=== PATIENT | male | born 1980 | race Caucasian/White ===

== ENCOUNTER 2019-06-20 15:15 | Emergency (ER) | payer OTHER, SELFPAY ==
[2019-06-20 15:19] VITALS: BP 152/108; PULSE 86; RESP 18; TEMP 36.8; O2SAT 100
--- NOTE | 2019-06-20 15:40 | ED.GENADULT ---
HPI - General Adult General Chief complaint: Wound/Laceration Stated complaint: Tooth pain Time Seen by Provider: 06/20/19 15:16 Source: patient Mode of arrival: ambulatory Limitations: no limitations History of Present Illness HPI narrative: Patient a 38-year-old male who presents to emergency department for right upper dental pain with history of gross dental decay noting moderate aching pain for the last 2 to 3 days worse with eating patient denies any fever chills nausea vomiting or URI symptoms has not taken anything for his symptoms does not have a dentist to follow with Related Data Allergies Allergy/AdvReac Type Severity Reaction Status Date / Time No Known Allergies Allergy Verified 06/20/19 15:48 Review of Systems Review of Systems: All systems reviewed & are unremarkable except as noted in HPI and below PMFSH Social History Social History Smoking status: Current every day smoker Exam Narrative: Exam Narrative: GENERAL: Well-appearing, well-nourished, and in no acute distress. HEAD: Normocephalic, atraumatic. EYES: PERRLA and EOMI. ENT: Nares clear, no rhinorrhea or epistaxis. Mucous membranes moist. Patient with gross dental decay no erythema swelling EXTREMITIES: Normal range of motion. No edema. SKIN: Warm, dry, no rash. NEURO: No focal deficits. Alert and oriented x3. PSYCH: Normal mood and affect. Course Course Emergency Course: Patient in the room aware of case findings treatment plan and diagnosis agreeing to follow-up with primary care and dentistry as instructed provided with reasons to return Vital Signs Vital signs: Vital Signs Temperature 98.3 F 06/20/19 15:19 Pulse Rate 86 06/20/19 15:19 Respiratory Rate 18 06/20/19 15:19 Blood Pressure 152/108 H 06/20/19 15:19 Pulse Oximetry 100 06/20/19 15:19 Temperature 98.3 F 06/20/19 15:19 Pulse Rate 86 06/20/19 15:19 Respiratory Rate 18 06/20/19 15:19 Blood Pressure 152/108 H 06/20/19 15:19 Pulse Oximetry 100 06/20/19 15:19 Medical Decision Making MDM Narrative Medical decision making narrative: Paitents pain and complaint coupled with physical findings are consistant with dentalgia. There are no focal signs of space occupying lesions that are compromising to the ariway. The floor of the mouth is soft with no signs of Ludwigs Angina. Patient is without trismus or drooling and able to swallow secreations. Patient is felt appropriate for discharge home with dental follow up. Vital Signs Vital Signs: Vital Signs Temperature 98.3 F 06/20/19 15:19 Pulse Rate 86 06/20/19 15:19 Respiratory Rate 18 06/20/19 15:19 Blood Pressure 152/108 H 06/20/19 15:19 Pulse Oximetry 100 06/20/19 15:19 Temperature 98.3 F 06/20/19 15:19 Pulse Rate 86 06/20/19 15:19 Respiratory Rate 18 06/20/19 15:19 Blood Pressure 152/108 H 06/20/19 15:19 Pulse Oximetry 100 06/20/19 15:19 Discharge Plan Discharge Clinical Impression: Dentalgia Patient Disposition: Home, Self-Care Condition: Stable Instructions: Antibiotic Form, Toothache (ED) Additional Instructions: Follow up with your primary care doctor and dentistry in 5-7 days for re-evaluation. Go to ER for worsening pain, vision changes, nausea/vomiting, fever/chills, weakness, chest pain, shortness of breath, numbness/tingling, slurred speech, difficulty walking, change in mental status unable to swallow or open the mouth etc. or any other concerns. Stay well-hydrated Take any prescribed medications as directed. Prescriptions: New amoxicillin 500 mg capsule 500 mg PO Q12H 10 Days Qty: 20 RF: 0 chlorhexidine gluconate [Peridex] 0.12 % mouthwash 15 ml MUCOUS MEM BID Qty: 1500 RF: 0 ibuprofen [IBU] 600 mg tablet 600 mg PO Q6H PRN (Reason: fever or pain) Qty: 7 RF: 0 Follow-up/Referrals: Dental Referral Line [Outside] [facility] [Outside] [facility]
[2019-06-20] MEDS: KETOROLAC (*BKC) 60 MG/2 ML VIAL IM (15:46)
[2019-06-20 15:59] VITALS: BP 148/78; PULSE 80; RESP 18; O2SAT 99
== END 2019-06-20 16:01 | disposition home or self-care (01) ==
PROVIDERS: Emergency Provider Emergency Medicine
DX: K08.89 Other specified disorders of teeth and supporting structures (principal); F17.200 Nicotine dependence, unspecified, uncomplicated
CPT/HCPCS: 96372; 99283; J1885

== ENCOUNTER 2020-01-02 17:24 | Emergency (ER) | payer OTHER, SELFPAY ==
--- NOTE | ~2020-01-02 | CT_ITS ---
EXAMINATION: CT abdomen pelvis w con DATE: 01/02/2020 19:58 INDICATION: Abdominal pain TECHNIQUE: Computed tomography (CT) of the abdomen and pelvis was performed with 100 mL Omnipaque-350 intravenous contrast. Automated exposure control and iterative reconstruction technique were employe d. The dose-length product was 651.80 mGy-cm. COMPARISON: None FINDINGS: A few calcified nodules in the left lower lobe, calcified left hilar and paraesophageal lymph nodes a nd a few scattered hepatic and splenic calcification consistent with old granulomatous disease. Heart size is normal. No pericardial or pleural effusion. Focal hepatic steatosis at the ligamentum teres. Gallbladder, pancreas and bilateral kidneys are normal. 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 Additional 1.5 cm cyst at the lower pole of th e left kidney. There is mild colonic diverticulosis with a sigmoid predominance. There is no adjacent inflammatory change to suggest diverticulitis. Small bowel and appendix are normal. Bladder is chinedu l. No free intraperitoneal gas or fluid. No pathologically enlarged abdominal or pelvic lymphadenopat hy. 6 mm retrolisthesis L5 on S1 with severe disc height loss at this level. IMPRESSION: 1. No acute intra-abdominal/pelvic process. Reviewed, dictated and finalized at [facility]. [facility]
[2020-01-02 17:52] VITALS: BP 121/83; PULSE 84; RESP 16; TEMP 36.3; O2SAT 97
[2020-01-02 18:05] LABS: Basophils Absolute Auto 0.1 K/mm3 (0.0-0.1); Basophils Percent Auto 0.5 % (0.2-1.2); Eosinophils Absolute Auto 0.6 K/mm3 (0-0.3); Eosinophils Percent Auto 6.1 % (0-4.4); Hematocrit 47.5 % (42.0-52.0); Hemoglobin 16.3 g/dL (14.0-18.0); Immature Granulocyte Absolute 0.02 K/mm3 (0.00-0.031); Immature Granulocyte Percent A 0.2 % (0-0.5); Mean Corpuscular HGB Conc 34.3 g/dl (32-36); Mean Corpuscular Hemoglobin 30.3 pg (26-34); Mean Corpuscular Volume 88.3 fl (80-100); Monocytes Absolute Auto 0.7 K/mm3 (0.1-0.6); Monocytes Percent Auto 7.1 % (2.6-8.5); Neutrophils Percent Auto 63.1 % (45.5-73.1); Platelet Count Result 337 k/mm3 (150-375); Red Blood Count 5.38 M/mm3 (4.6-6.20); Red Cell Distribution Width 13.2 % (11.5-14.5); White Blood Count 9.6 K/mm3 (4.5-10.0)
[2020-01-02 18:17] LABS: Alanine Aminotransferase 26 U/L (4-50); Albumin Level 4.2 g/dL (3.5-5.1); Alkaline Phosphatase 87 U/L (38-126); Anion Gap 7 mmol/L (8-16); Aspartate Amino Transferase 30 U/L (17-59); Bilirubin,Total 0.3 mg/dL (0.2-1.3); Blood Urea Nitrogen 12 mg/dL (9-20); Calcium 9.1 mg/dL (8.4-10.2); Carbon Dioxide 27 mmol/L (22-30); Chloride 103 mmol/L (98-107); Estimated CRCL calculation 158 ml/min; Estimated Glomerular Filt Rate > 60; Glucose 114 mg/dL (75-110); Lipase 363 U/L (23-300); Sodium 137 mmol/L (137-145)
[2020-01-02 18:22] LABS: Add Urine Microscopic? NO; Appearance Urine Clear (Clear); Bilirubin Urine Negative (Negative); Blood Urine Negative (Negative); Color Urine Yellow (Yellow); Glucose Urine UA Negative (Negative); Ketones Urine Negative (Negative); Leukocyte Esterase Ur Negative LEU/UL (Negative); Nitrate Urine Negative (Negative); Protein Urine Negative (Negative); Specific Grav Ur 1.023 (1.001-1.035); Urobilinogen Urine Negative mg/dL (<2.0)
[2020-01-02 19:32] VITALS: BP 98/62; PULSE 79; RESP 15; O2SAT 98
--- NOTE | 2020-01-02 19:33 | ED.ABDPAIN ---
HPI - Abdominal Pain General Chief Complaint: Abdominal Pain Stated Complaint: a lot of stomach pain Time Seen by Provider: 01/02/20 19:16 Source: patient Mode of arrival: ambulatory Limitations: no limitations History of Present Illness HPI narrative: This is a 39 year old male that presents to the ER for abdominal pain since yesterday. Reports sharp, intermittent upper abdominal pain. He has not taken any medication for this. Denies fever, nausea, vomiting, diarrhea, dysuria or hematuria. Related Data Home Medications Medication Instructions Recorded Confirmed No Home Medications 01/02/20 01/02/20 Allergies Allergy/AdvReac Type Severity Reaction Status Date / Time No Known Allergies Allergy Verified 06/20/19 15:48 Review of Systems Review of Systems: Narrative: CONSTITUTIONAL: Denies fever GASTROINTESTINAL: Reports abdominal pain. Denies nausea, vomiting, or diarrhea. GENITOURINARY: Denies dysuria or hematuria. All systems reviewed & are unremarkable except as noted in HPI and below PMFSH Past Medical History Medical History (Updated 01/02/20 @ 20:56 by Rani Adam PA-C) No active medical problems Social History Social History (Updated 01/02/20 @ 19:36 by Rani Adam PA-C) Smoking status: Current every day smoker Substance use: never Gender identity (if verbalized by the patient): Male Exam Narrative: Exam Narrative: GENERAL: Well-appearing, well-nourished, and in no acute distress. HEAD: Normocephalic, atraumatic. EYES: EOMI. CHEST: Clear to auscultation. No respiratory distress. No wheezes rales or rhonchi HEART: Regular rate and rhythm. No murmur heard. Normal peripheral pulses. ABDOMEN: Soft, nondistended, normal active bowel sounds. Tender to palpation throughout the abdomen, without guarding EXTREMITIES: Normal range of motion. No edema. SKIN: Warm, dry, no rash. NEURO: No focal deficits. Alert and oriented x3. PSYCH: Normal mood and affect Course Vital Signs Vital signs: Vital Signs Temperature 97.4 F L 01/02/20 17:52 Pulse Rate 84 01/02/20 17:52 Respiratory Rate 16 01/02/20 17:52 Blood Pressure 121/83 01/02/20 17:52 Pulse Oximetry 97 01/02/20 17:52 Temperature 97.4 F L 01/02/20 17:52 Pulse Rate 79 01/02/20 19:32 Respiratory Rate 15 01/02/20 19:32 Blood Pressure 98/62 L 01/02/20 19:32 Pulse Oximetry 98 01/02/20 19:32 MDM - Abdominal Pain MDM Narrative Medical decision making narrative: Patient presents the emergency department for abdominal pain since last night. He is afebrile and nontoxic-appearing. CBC and metabolic panel are without acute findings. Lipase is very mildly elevated to 363. Since symptom onset was last night, I would expect his lipase to be markedly elevated if I was concerned for pancreatitis. UA is without evidence of infection or acute findings. CT scan of the abdomen and pelvis is without acute findings. Patient reports relief with IV fluids and pain medication. He is stable and felt appropriate for further outpatient evaluation. He was given warnings to return to the ER Lab Data Attestation: I reviewed the patient's lab results. Result diagrams: 01/02/20 17:57 01/02/20 17:58 Labs: Lab Results 01/02/20 01/02/20 01/02/20 Range/Units 17:57 17:58 18:03 WBC 9.6 (4.5-10.0) K/mm3 RBC 5.38 (4.6-6.20) M/mm3 Hgb 16.3 (14.0-18.0) g/dL Hct 47.5 (42.0-52.0) % MCV 88.3 (80-100) fl MCH 30.3 (26-34) pg MCHC 34.3 (32-36) g/dl RDW 13.2 (11.5-14.5) % Plt Count 337 (150-375) k/mm3 MPV 10.0 (7.4-10.4) fl Immature Gran % (Auto) 0.2 (0-0.5) % Neut % (Auto) 63.1 (45.5-73.1) % Lymph % (Auto) 23.0 (18.3-44.2) % Dodge % (Auto) 7.1 (2.6-8.5) % Eos % (Auto) 6.1 H (0-4.4) % Baso % (Auto) 0.5 (0.2-1.2) % Lymph # (Auto) 2.20 (0.9-3.2) K/mm3 Dodge # (Auto) 0.7 H (0.1-0.6) K/mm3 Eos # (Auto) 0.6 H (0-0.3
[2020-01-02] MEDS: SODIUM CHLORIDE 0.9% IV 1,000 ML 999 ML IV CONT (19:38)
[2020-01-02] MEDS: ONDANSETRON INJ 4 MG/2 ML VIAL IV PUSH (19:38)
[2020-01-02] MEDS: MORPHINE SULFATE (*CRX) 4 MG/ML INJ IV PUSH (19:38)
[2020-01-02 20:00] VITALS: BP 125/93; PULSE 80; RESP 15; O2SAT 100
--- NOTE | 2020-01-02 20:00 | PC.NURSE ---
Pt to ct
[2020-01-02 21:05] VITALS: BP 114/86; PULSE 78; RESP 15; O2SAT 99
== END 2020-01-02 21:05 | disposition home or self-care (01) ==
PROVIDERS: Emergency Provider Emergency Medicine
DX: R10.10 Upper abdominal pain, unspecified (principal); F17.200 Nicotine dependence, unspecified, uncomplicated
CPT/HCPCS: 36415; 74177; 80053; 81003; 83690; 85025; 96361; 96374; 96375; 99284; J0131; J2270; J2405; J7030; Q9967